=== PATIENT | female | born 1955 | race African-American/Black ===

== ENCOUNTER 2019-01-23 02:09 | Emergency (ER) | payer OTHER ==
[~2019-01-23] VITALS: Ht 175.3 cm; Wt 82.0 kg
[2019-01-23] MEDS ORDERED: ONDANSETRON HCL 4MG/2ML INJ IV STA (03:02)
[2019-01-23] MEDS ORDERED: SODIUM CHLORIDE 0.9% 1000ML BAG (SEPSIS BOLUS) IV ONE (03:15)
[2019-01-23] MEDS ORDERED: CEFTRIAXONE 1 G PREMIX 50 ML IV ONE (03:15)
[2019-01-23 03:40] LABS: BASOPHILS % 0.7 % (0.0-2.0); EOSINOPHILS % 0.2 % (0.0-5.0); HEMATOCRIT. 30.2 % (36.0-48.0); HEMOGLOBIN. 9.9 g/dL (12.0-16.0); LYMPHOCYTES % 10.9 % (20.0-50.0); MEAN CORPUSCULAR HEMOGLOBIN 32.9 pg (28.0-32.0); MEAN CORPUSCULAR VOLUME 100.2 fL (81.0-99.0); MEAN PLATELET VOLUME 7.2 fl (7.4-10.4); MONOCYTES % 2.6 % (2.0-8.0); NEUTROPHILS % 85.6 % (40.0-76.0); PLATELET 302 x1000/uL (130-400); RED BLOOD CELL COUNT 3.01 mill/uL (4.2-5.4); RED CELL DISTRIBUTION WIDTH 17.6 % (11.6-14.6)
[2019-01-23 03:44] LABS: CHLORIDE 110 mEq/L (98-107)
[2019-01-23 03:45] LABS: PROTHROMBIN TIME 10.2 sec (9.6-11.0)
[2019-01-23 04:16] LABS: CLARITY URINE CLEAR (CLEAR); COLOR URINE YELLOW (YELLOW); KETONES URINE NEGATIVE (NEGATIVE); LEUKOCYTE ESTERASE URINE TRACE (NEGATIVE); NITRITE URINE NEGATIVE (NEGATIVE); OCCULT BLOOD URINE NEGATIVE (NEGATIVE); PROTEIN URINE 1+ (NEGATIVE); SPECIFIC GRAVITY URINE 1.013 (1.005-1.030); UROBILINOGEN URINE 0.2 E.U./dL (0.2-1.0)
[2019-01-23] MEDS: ACETAMINOPHEN 650MG/20.3ML UDC PO NR ×2 (05:41→08:09)
[2019-01-23] MEDS ORDERED: KETOROLAC 15MG/ML VIAL IV ONE (07:15)
[2019-01-23 07:46] VITALS: BP 105/63
== END 2019-01-23 08:33 | disposition short-term general hospital (02) ==
LOC: ER 02:09 → CANBEDREQ 10:48
DX: A41.9 Sepsis, unspecified organism (principal); N18.9 Chronic kidney disease, unspecified; R50.81 Fever presenting with conditions classified elsewhere; Z88.0 Allergy status to penicillin; Z88.2 Allergy status to sulfonamides; Z88.8 Allergy status to other drugs, medicaments and biological substances
CPT/HCPCS: 36415; 70450; 71045; 80053; 81003; 83605; 84145; 84484; 85025; 85610; 86850; 86900; 86901; 87040; 87077; 87086; 93005; 96365; 96375; 99291; C1893; J0696; J1885; J2405; J7030; Z7610